=== PATIENT | male | born 1955 | race Hispanic/Latino ===

== ENCOUNTER 2017-03-20 21:31 | Observation (INO) | payer OTHER ==
[~2017-03-20] VITALS: Ht 180.3 cm; Wt 69.6 kg
[~2017-03-20 21:31] MED LIST: ASPIR-LOW81 MG PO; ASPIRIN81 M2 PO; AUGMENTIN875 MG PO; CELEBREX100 MG PO; CELEBREX200 MG PO; FERROUS SULFAT325 MG PO; FLEXERIL10 MG PO; GLIPIZIDE10 M1 PO; GLIPIZIDE10 MG PO; GLUCOPHAGE1000 MG PO; HUMULIN N100 UNIT/2 SC; LANTUS 3 M100 UNITS1 SC; LISINOPRIL10 MG PO; MONTELUKAST SOD10 MG PO; MOTRIN800 MG PO; NAPROXEN500 MG PO; OMEGA 3-6-9 CO1 EACH PO; OMEPRAZOLE40 M1 PO; PANTOPRAZOLE SO40 MG PO; PLAVIX75 MG PO; PRAVACHOL80 MG PO; PRAVASTATIN SOD40 MG PO; SINGULAIR10 MG PO; TIMOLOL MALEATE15 M1 RIGHT EYE; TRIAMCINOLONE A15 GM TP; TYLENOL WITH C1 EACH PO; ULTRAM50 MG PO
[2017-03-20 22:11] LABS: HEMATOCRIT 44.1 % (38.0-50.0); MCH 27.8 PG (29.0-34.0); MCHC 32.9 G/DL (30.0-36.0); MCV 84.6 FL (86-99); MEAN PLAT.VOLUME 11.5 uM^3 (9.0-12.4); PLATELET COUNT 213 K/uL (156-360); RBC DIS.WIDTH-CV 13.2 % (11.8-14.6); RBC DIS.WIDTH-SD 41.1 % (39-53); RED BLOOD COUNT 5.21 M/uL (4.00-5.50)
[2017-03-20 22:25] LABS: CHLORIDE 105 mEq/L (99-109); POTASSIUM 3.6 mEq/L (3.7-5.4); SODIUM 141 mEq/L (136-147)
[2017-03-20 22:27] LABS: GLUCOSE 225 mg/dL (70-99)
[2017-03-20 22:28] LABS: ANION GAP 12 MEQ/L (2-14)
[2017-03-20 22:30] LABS: GFR ESTIMATE (CALCULATED) > 59 mL/min/
[2017-03-20 22:31] LABS: UREA NITROGEN (BUN) 15 mg/dL (9-23)
[2017-03-20 22:32] LABS: TROP-I INTERPRETATION NEGATIVE; TROPONIN-I < 0.01 ng/mL (0.0-0.30)
[2017-03-21] MEDS ORDERED: LO-DOSE ASPIRIN81 M1 PO (00:51)
[2017-03-21] MEDS ORDERED: OXYBUTYNIN CHLOR5 M1 PO (00:54)
[2017-03-21 04:03] VITALS: BP 155/89
[2017-03-21 04:04] LABS: POINT-OF-CARE METER ID UU13113831
[2017-03-21 04:13] LABS: HDL CHOLESTEROL 31 MG/DL (Desirable>=40); LDL CHOLESTEROL 92 mg/dL (Desirable<100); NON-HDL CHOLESTEROL 124 mg/dL (Desirable<160); SAMPLE HEMOLYSIS CHECK 0; SAMPLE ICTERIC CHECK 0; SAMPLE LIPEMIA CHECK 0; TOTAL CHOLESTEROL 155 mg/dL (Desirable<200); TRIGLYCERIDES 158 MG/DL (Normal: <150)
[2017-03-21 08:21] VITALS: BP 160/77
[2017-03-21 11:59] VITALS: BP 158/77
[2017-03-21 12:22] LABS: POINT-OF-CARE METER ID UU14162513
[2017-03-21] MEDS ORDERED: POLYETHYLENE GL17 GM PO (15:10)
[2017-03-21] MEDS ORDERED: DOCUSATE SODIU100 MG PO (15:10)
[2017-03-21] MEDS ORDERED: LOSARTAN POTASS25 MG PO (15:13)
[2017-03-21 15:42] VITALS: BP 140/79
[2017-03-22 07:13] LABS: Estimated Average Glucose 166 mg/dL (70-123); HEMOGLOBIN A1c (GLYCOHEMOGLOB) 7.4 % HGB (Below 5.7)
== END 2017-03-21 17:52 | disposition home or self-care (01) ==
LOC: EME 21:31 → EDOF 03-21 02:36 → 5WEST 03-21 03:36
PROVIDERS: Hospitalist
DX: I16.0 Hypertensive urgency (principal); I10 Essential (primary) hypertension; R29.810 Facial weakness; M62.81 Muscle weakness (generalized); R51 Headache; R42 Dizziness and giddiness; E11.9 Type 2 diabetes mellitus without complications; Z79.4 Long term (current) use of insulin; E78.5 Hyperlipidemia, unspecified; Z86.73 Personal history of transient ischemic attack (TIA), and cerebral infarction without residual deficits; H40.9 Unspecified glaucoma
CPT/HCPCS: 70450; 70551; 71020; 80048; 80061; 82948; 83036; 84484; 85027; 93005; 93880; 99281; 99285; G0378; J0360; J1200; J1644; J1815; J1885; J7030